=== PATIENT | female | born 1985 | race Caucasian/White ===

== ENCOUNTER 2019-01-24 18:52 | Emergency (ER) | payer OTHER ==
[~2019-01-24] VITALS: Ht 172.7 cm; Wt 77.1 kg
== END 2019-01-24 21:06 | disposition home or self-care (01) ==
LOC: ER 18:52
DX: S20.362A Insect bite (nonvenomous) of left front wall of thorax, initial encounter (principal); S20.361A Insect bite (nonvenomous) of right front wall of thorax, initial encounter; L08.89 Other specified local infections of the skin and subcutaneous tissue; W57.XXXA Bitten or stung by nonvenomous insect and other nonvenomous arthropods, initial encounter; Y93.89 Activity, other specified; Y92.89 Other specified places as the place of occurrence of the external cause; Y99.8 Other external cause status